=== PATIENT | female | born 1970 | race Caucasian/White ===

== ENCOUNTER 2018-04-17 17:31 | Emergency (ER) | payer MEDICAID ==
[2018-04-18] MEDS ORDERED: MAXITROL EYE DRO5 ML EACH EYE (04:14)
== END 2018-04-17 20:30 | disposition left against medical advice (07) ==
LOC: D.ER 17:31
DX: H10.33 Unspecified acute conjunctivitis, bilateral (principal); F17.200 Nicotine dependence, unspecified, uncomplicated

== ENCOUNTER 2018-04-18 03:46 | Emergency (ER) | payer MEDICAID ==
[~2018-04-18] VITALS: Ht 172.7 cm; Wt 70.5 kg
[2018-04-18 03:53] VITALS: Ht 172.7 cm; Wt 70.5 kg
[2018-04-18] MEDS ORDERED: MAXITROL EYE DRO5 ML EACH EYE (04:14)
[2018-04-18 04:18] VITALS: BP 132/76
== END 2018-04-18 04:18 | disposition home or self-care (01) ==
LOC: D.ER 03:46
DX: H10.33 Unspecified acute conjunctivitis, bilateral (principal); F17.200 Nicotine dependence, unspecified, uncomplicated

== ENCOUNTER 2018-06-02 06:43 | Emergency (ER) | payer MEDICAID ==
[~2018-06-02] VITALS: Ht 172.7 cm; Wt 68.2 kg
[~2018-06-02 06:43] MED LIST: MAXITROL EYE DRO5 ML EACH EYE
[2018-06-02 06:51] VITALS: Ht 172.7 cm; Wt 68.2 kg
[2018-06-02] MEDS ORDERED: ACETAMINOPHEN500 M1 PO (08:53)
[2018-06-02] MEDS ORDERED: IBUPROFEN800 MG PO (08:53)
[2018-06-02] MEDS ORDERED: CYCLOBENZAPRINE10 MG PO (08:53)
[2018-06-02 09:12] VITALS: BP 138/80
== END 2018-06-02 09:13 | disposition home or self-care (01) ==
LOC: D.ER 06:43
DX: T14.8XXA Other injury of unspecified body region, initial encounter (principal); W01.0XXA Fall on same level from slipping, tripping and stumbling without subsequent striking against object, initial encounter; Y93.89 Activity, other specified; Y92.019 Unspecified place in single-family (private) house as the place of occurrence of the external cause; M79.1 Myalgia; F17.200 Nicotine dependence, unspecified, uncomplicated

== ENCOUNTER 2018-07-27 04:05 | Emergency (ER) | payer MEDICAID ==
[~2018-07-27] VITALS: Ht 172.7 cm; Wt 65.8 kg
[~2018-07-27 04:05] MED LIST changes: +ACETAMINOPHEN500 M1 PO; +CYCLOBENZAPRINE10 MG PO; +IBUPROFEN800 MG PO
[2018-07-27 04:14] VITALS: Ht 172.7 cm; Wt 65.8 kg
[2018-07-27 05:05] LABS: BASOPHILS 0.3 % (0-2); EOSINOPHILS 2.2 % (0-7); HEMATOCRIT 35.8 % (36.0-48.0); HEMOGLOBIN 12.4 g/dL (12-16); IMMATURE GRANULOCYTES 0.1 % (0-5); LYMPHOCYTES 22.3 % (15-50); MCH 32.5 pg (26.0-34.0); MCHC 34.6 g/dL (31.0-37.0); MEAN PLATELET VOLUME 9.3 fL (7.4-10.4); MONOCYTES 13.8 % (2-11); NEUTROPHILS 61.3 % (40-80); PLATELET COUNT 300 10x3/uL (130-400); RBC 3.81 10x6/uL (4.00-5.40); RDW 12.6 % (11.5-14.5); WBC 7.9 10x3/uL (4.8-10.8)
[2018-07-27 05:12] LABS: ALBUMIN 3.5 g/dL (3.4-5.0); ALKALINE PHOSPHATASE 79 U/L (46-116); ALT (SGPT) 40 U/L (10-68); BILIRUBIN - TOTAL 0.59 mg/dL (0.2-1.3); CALC OSMOLALITY 281 mosm/kg (275-300); CARBON DIOXIDE 22.7 mmol/L (21.0-32.0); CHLORIDE - SERUM 107 mmol/L (98-107); CREATINE KINASE 178 UL (21-215); CREATININE - SERUM 0.7 mg/dL (0.6-1.3); GLUCOSE 111 mg/dL (74-106); LIPASE 55 U/L (73-393); POTASSIUM - SERUM 3.4 mmol/L (3.5-5.1); PROTEIN - SERUM 6.9 g/dL (6.4-8.2); SODIUM 141 mmol/L (136-145); UREA NITROGEN 12 mg/dL (7-18); eGFR NON AFRICAN AMERICAN > 90 mL/min (90-120)
[2018-07-27 06:43] LABS: UDS - AMPHET POSITIVE QUAL (NEGATIVE); UDS - BARB NEGATIVE QUAL (NEGATIVE); UDS - BENZO NEGATIVE QUAL (NEGATIVE); UDS - COCAINE NEGATIVE QUAL (NEGATIVE); UDS - OPIATE NEGATIVE QUAL (NEGATIVE); UDS - PCP NEGATIVE QUAL (NEGATIVE); UDS - THC POSITIVE QUAL (NEGATIVE)
[2018-07-27 06:50] LABS: HCG URINE NEGATIVE (NEGATIVE)
[2018-07-27 07:12] LABS: APPEARANCE HAZY (CLEAR); BACTERIA FEW /hpf (NONE SEEN); BILIRUBIN NEGATIVE (NEGATIVE); COLOR YELLOW (YELLOW); EPITHELIAL CELLS OCC /hpf (0-5); GLUCOSE NEGATIVE (NEGATIVE); KETONE NEGATIVE (NEGATIVE); NITRITE NEGATIVE (NEGATIVE); PROTEIN NEGATIVE (NEGATIVE); RED CELLS - URINE 0-5 /hpf (0-5); SPECIFIC GRAVITY 1.015 (1.005-1.020); UROBILINOGEN NORMAL (NORMAL); WHITE CELLS - URINE OCC /hpf (0-5)
[2018-07-27 07:45] VITALS: BP 121/76
== END 2018-07-27 07:43 | disposition home or self-care (01) ==
LOC: D.ER 04:05
PROVIDERS: Family Medicine
DX: F19.10 Other psychoactive substance abuse, uncomplicated (principal); R10.2 Pelvic and perineal pain; F17.200 Nicotine dependence, unspecified, uncomplicated

== ENCOUNTER 2019-01-06 10:41 | Emergency (ER) | payer MEDICAID ==
[~2019-01-06] VITALS: Ht 172.7 cm; Wt 70.5 kg
[2019-01-06 10:59] VITALS: Ht 172.7 cm; Wt 70.5 kg
[2019-01-06] MEDS ORDERED: VOLTAREN75 MG PO (13:15)
[2019-01-06] MEDS ORDERED: BACLOFEN20 M1 PO (13:15)
[2019-01-06 14:05] VITALS: BP 150/92
== END 2019-01-06 14:05 | disposition home or self-care (01) ==
LOC: D.ER 10:41
DX: M62.838 Other muscle spasm (principal); M54.6 Pain in thoracic spine

== ENCOUNTER 2019-06-29 10:44 | Emergency (ER) | payer MEDICAID ==
[~2019-06-29] VITALS: Ht 172.7 cm; Wt 68.2 kg
[~2019-06-29 10:44] MED LIST changes: +BACLOFEN20 M1 PO; +VOLTAREN75 MG PO
[2019-06-29 10:46] VITALS: Ht 172.7 cm; Wt 68.2 kg
[2019-06-29 11:09] LABS: BASOPHILS 0.1 % (0-2); EOSINOPHILS 2.7 % (0-7); HEMOGLOBIN 14.3 g/dL (12-16); IMMATURE GRANULOCYTES 0.1 % (0-5); LYMPHOCYTES 9.6 % (15-50); MCH 31.9 pg (26.0-34.0); MCV 93.8 fL (80.0-100.0); MEAN PLATELET VOLUME 9.3 fL (7.4-10.4); MONOCYTES 12.1 % (2-11); NEUTROPHILS 75.4 % (40-80); PLATELET COUNT 284 10x3/uL (130-400); RBC 4.48 10x6/uL (4.00-5.40); RDW 13.7 % (11.5-14.5); WBC 9.2 10x3/uL (4.8-10.8)
[2019-06-29 11:19] LABS: ALKALINE PHOSPHATASE 114 U/L (46-116); ALT (SGPT) 24 U/L (10-68); BILIRUBIN - TOTAL 0.15 mg/dL (0.2-1.3); CALC OSMOLALITY 286 mosm/kg (275-300); CALCIUM 8.3 mg/dL (8.5-10.1); CARBON DIOXIDE 23.2 mmol/L (21.0-32.0); CHLORIDE - SERUM 109 mmol/L (98-107); CREATININE - SERUM 0.8 mg/dL (0.6-1.3); GLUCOSE 115 mg/dL (74-106); POTASSIUM - SERUM 3.8 mmol/L (3.5-5.1); PROTEIN - SERUM 6.5 g/dL (6.4-8.2); SODIUM 144 mmol/L (136-145); UREA NITROGEN 10 mg/dL (7-18); eGFR NON AFRICAN AMERICAN 80 mL/min (90-120)
[2019-06-29] MEDS ORDERED: AUGMENTIN 875-11 TAB PO (12:06)
[2019-06-29 12:20] VITALS: BP 148/76
== END 2019-06-29 12:17 | disposition home or self-care (01) ==
LOC: D.ER 10:44
PROVIDERS: Family Medicine
DX: J01.90 Acute sinusitis, unspecified (principal)